=== PATIENT | female | born 1930 | race Caucasian/White ===

== ENCOUNTER → 2017-09-07 | Outpatient (CLI) | payer MEDICARE, MEDICAID | END | disposition home or self-care (01) | LOC: CVU 12:23 | PROVIDERS: ATTEND Physician Assistant | DX: I08.0 Rheumatic disorders of both mitral and aortic valves (principal); I65.23 Occlusion and stenosis of bilateral carotid arteries; E11.9 Type 2 diabetes mellitus without complications; I10 Essential (primary) hypertension; I25.2 Old myocardial infarction; I65.8 Occlusion and stenosis of other precerebral arteries; Z85.3 Personal history of malignant neoplasm of breast; Z86.73 Personal history of transient ischemic attack (TIA), and cerebral infarction without residual deficits; Z87.891 Personal history of nicotine dependence | CPT/HCPCS: 93306; 93880 ==

== ENCOUNTER → 2019-07-11 | Outpatient (CLI) | payer MEDICARE, MEDICAID | END | disposition home or self-care (01) | LOC: CVU 10:53 | PROVIDERS: ATTEND Internal Medicine Cardiovascular Disease | DX: I65.8 Occlusion and stenosis of other precerebral arteries (principal) | CPT/HCPCS: 93880 ==

== ENCOUNTER 2019-12-07 14:07 | Inpatient (IN) | payer MEDICARE, MEDICAID ==
[~2019-12-07] VITALS: Ht 157.5 cm; Wt 74.7 kg
--- NOTE | 2019-12-07 14:30 | NUR ---
SEE TRIAGE. PT ASSISTED UP TO BSC. ALL ROOM MONITORING IN PLACE. PT KEPT ON OXYGEN AT 2LITERS VIA NC. PT DENIES HOME OXYGEN USE. PT ASKED ABOUT LONG LIST OF ALLERGIES AND STATES SHE DOESN'T REMEMBER EACH REACTION. PT SPECIFICALLY ASKED ABOUT IODINE AND SAYS, "I'VE USED IODINE ALL THE TIME ON MY SKIN AND I DON'T GET A REACTION". PT DOES NOT REMEMBER HAVING CT CONTRAST OR IODINE IN IV. ERP NOTIFIED. CALL LIGHT WITHIN REACH.
[2019-12-07 15:18] LABS: INTERNATIONAL NORMALIZED RATIO 1.05 (0.93-1.1); PROTHROMBIN TIME 10.8 Seconds (9.6-11.5)
[2019-12-07] MEDS ORDERED: DUONEB INH (15:30)
[2019-12-07] MEDS ORDERED: TRAZ50TA66 PO (15:30)
[2019-12-07] MEDS ORDERED: ATOR10TA9 PO (15:30)
[2019-12-07] MEDS ORDERED: ROSU5TAB PO (15:30)
[2019-12-07] MEDS ORDERED: NYST15OI TP (15:30)
[2019-12-07] MEDS ORDERED: METF500T17 PO (15:30)
[2019-12-07] MEDS ORDERED: AMLO10TA8 PO (15:30)
[2019-12-07] MEDS ORDERED: VIT E PO (15:30)
[2019-12-07] MEDS ORDERED: ERGO500017 PO (15:30)
[2019-12-07] MEDS ORDERED: LORA10TA62 PO (15:30)
[2019-12-07] MEDS ORDERED: POTA10TA PO (15:30)
[2019-12-07] MEDS ORDERED: NITR1PAT20 TD (15:30)
[2019-12-07] MEDS ORDERED: OMEP40CA42 PO (15:30)
[2019-12-07] MEDS ORDERED: POTA10CA PO (15:30)
[2019-12-07] MEDS ORDERED: MAGN400T9 PO (15:30)
[2019-12-07] MEDS ORDERED: TRIA10PO2 TP (15:30)
[2019-12-07] MEDS ORDERED: MULT-108 PO (15:30)
[2019-12-07] MEDS ORDERED: CLOP75TA52 PO (15:30)
[2019-12-07] MEDS ORDERED: FLUT9.9S NAS (15:30)
[2019-12-07] MEDS ORDERED: [UNRECOGNIZED DRUG - CODE] PO (15:30)
--- NOTE | 2019-12-07 16:13 | NUR ---
[facility] IN TO SEE PT.
--- NOTE | 2019-12-07 17:05 | NUR ---
FRIEND/NEIGHBOR, POINT OF CONTACT CALLED TO INQUIRE ON PT. UNABLE TO GIVE OUT INFORMATION, PT IN CT-UNABLE TO GET CONSENT. TEA VILLAFUERTE [phone]
[2019-12-07] MEDS ORDERED: OMNIPAQUE 350 MG/ML, 100ML BOTTLE ONE (17:08)
--- NOTE | 2019-12-07 17:27 | NUR ---
CTA RESULTS BACK, PT FOR RECHECK.
[2019-12-07] MEDS ORDERED: CEFTRIAXONE PMX 1GM/50ML 50 ML IV SCH (18:00)
[2019-12-07] MEDS ORDERED: ENALAPRILAT 1.25 MG/ML, 2ML IVPush PRN (18:00)
[2019-12-07] MEDS ORDERED: ONDANSETRON ODT 4 MG PO PRN (18:00)
[2019-12-07] MEDS ORDERED: ONDANSETRON 2MG/ML, 2ML IVPush PRN (18:00)
[2019-12-07] MEDS ORDERED: MELATONIN 5 MG TABLET PO PRN (18:00)
[2019-12-07] MEDS ORDERED: DOCUSATE 100 MG CAPSULE PO PRN (18:00)
[2019-12-07] MEDS ORDERED: DEXTROSE 50%, 50ML SYRINGE IVPush PRN (18:00)
[2019-12-07] MEDS ORDERED: ACETAMINOPHEN 325 MG TABLET PO PRN (18:00)
[2019-12-07] MEDS ORDERED: GLUCAGON 1 MG IM PRN (18:00)
[2019-12-07] MEDS ORDERED: GUAIFENESIN/COD200MG-20MG/10ML LIQUID PO PRN (18:00)
[2019-12-07] MEDS ORDERED: AZITHROMYCIN 500 MG in SODIUM CHLORIDE 0.9% 250 ML IV SCH (18:00)
[2019-12-07] MEDS ORDERED: DEXTROSE 4 GM TAB.CHEW PO PRN (18:00)
--- NOTE | 2019-12-07 18:19 | NUR ---
REPORT TO VALERIE, WORKING WITH TINO. PT READY FOR TRANSPORT TO FLOOR.
--- NOTE | 2019-12-07 18:20 | NUR ---
[employer]OL OFFICER WAS PAGED @[phone]
--- NOTE | 2019-12-07 18:22 | NUR ---
BRA[employer] PRESS PULLER CALLED BACK @[phone].
[2019-12-07] MEDS ORDERED: POTASSIUM CHLORIDE 20 MEQ in SODIUM CHLORIDE 0.9% 250 ML IV ONE (18:30)
--- NOTE | 2019-12-07 18:58 | NUR ---
BEDSIDE REPORT FROM JUSTIN AG. PT SITTING IN BED, NO SIGNS OF ACUTE DISTRESS, CONNECTED TO CARDIAC, BP AND O2 MONITORS. CALL LIGHT IN REACH, BEDRAILS UP X2.
--- NOTE | 2019-12-07 18:59 | NUR ---
REPORT TO PHIL, TRANSFER OF CARE AT THIS TIME.
[2019-12-07] MEDS ORDERED: TICAGRELOR 90 MG TABLET PO ONE (19:00)
[2019-12-07] MEDS ORDERED: FUROSEMIDE 20 MG/2 ML IV ONE (19:45)
[2019-12-07 20:01] VITALS: BP 113/63
[2019-12-07] MEDS: [UNRECOGNIZED DRUG - REMARK] MC SCH (21:00)
[2019-12-07] MEDS: INSULIN LISPRO 100 UNITS/ML, PEN SQ-INSULIN SCH (21:33)
[2019-12-07] MEDS: SODIUM CHLORIDE FLUSH 10ML SYR IVF SCH (21:42)
[2019-12-07] MEDS: ERTAPENEM 1 GM in SODIUM CHLORIDE 0.9% 50 ML IV SCH (22:32)
[2019-12-08] MEDS: ENOXAPARIN 80 MG/0.8 ML SQ SCH ×2 (00:25→11:48)
[2019-12-08 00:33] VITALS: BP 133/82
[2019-12-08] MEDS: [UNRECOGNIZED DRUG - REMARK] MC SCH (04:30)
[2019-12-08 05:37] LABS: BASOPHILS # (AUTO) 0.04 x10^3/uL (0-0.1); BASOPHILS % (AUTO) 1 % (0-1); EOSINOPHILS # (AUTO) 0.06 x10^3/uL (0-0.4); EOSINOPHILS % (AUTO) 1 % (1-7); LYMPHOCYTES # (AUTO) 1.78 x10^3/uL (1-3.4); LYMPHOCYTES % (AUTO) 23 % (22-44); MD NO; MEAN CORPUSCULAR HEMOGLOBIN 25.3 pg (27.0-34.8); MEAN CORPUSCULAR HGB CONC 30.8 g/dL (32.4-35.8); MEAN CORPUSCULAR VOLUME 82.1 fL (80-100); MEAN PLATELET VOLUME 8.3 fL (7.4-10.4); MONOCYTES # (AUTO) 1.03 x10^3/uL (0.2-0.8); MONOCYTES % (AUTO) 14 % (2-9); NEUTROPHILS % (AUTO) 62 % (42-75); PLATELET COUNT 262 x10^3/uL (130-400); RED CELL DISTRIBUTION WIDTH 18.6 % (9.6-15.2)
[2019-12-08 05:52] LABS: ANION GAP 7 mmol/L (5-15); CALCIUM 7.1 mg/dL (8.5-10.1); CHLORIDE 102 mmol/L (98-107)
[2019-12-08 05:53] LABS: CREATININE 0.93 mg/dL (0.55-1.02)
[2019-12-08] MEDS ORDERED: ASPIRIN 325 MG TABLET EC PO SCH (06:00)
[2019-12-08 06:46] VITALS: BP 150/87
[2019-12-08] MEDS: INSULIN LISPRO 100 UNITS/ML, PEN SQ-INSULIN SCH ×4 (07:00→21:00)
[2019-12-08] MEDS: SODIUM CHLORIDE FLUSH 10ML SYR IVF SCH ×2 (08:45→20:24)
--- NOTE | 2019-12-08 09:08 | NUR ---
d/c REC: Home GROUND DIET WITH THIN LIQUIDS PER PT REQUEST DUE TO ILL FITTING DENTURES Addendum: 12/08/19 at 0909 by Karlie FLOREZ Amended: Links added.
[2019-12-08] MEDS: CLOPIDOGREL 75 MG TABLET PO SCH (09:58)
[2019-12-08] MEDS: ASPIRIN 81 MG TABLET EC PO SCH (09:58)
[2019-12-08] MEDS ORDERED: METOPROLOL TARTRATE 25 MG TAB PO SCH (10:00)
[2019-12-08] MEDS ORDERED: POTASSIUM CHLORIDE 20 MEQ TAB.ER.PRT PO ONE (10:30)
[2019-12-08 12:20] VITALS: BP 146/69
[2019-12-08] MEDS: CARVEDILOL 3.125 MG TABLET PO SCH (17:27)
[2019-12-08] MEDS: POTASSIUM CHLORIDE 20 MEQ PACKET PO SCH ×2 (17:27→17:28)
[2019-12-08] MEDS: FUROSEMIDE 20 MG/2 ML IV SCH (17:27)
[2019-12-08 18:49] VITALS: BP 139/84
[2019-12-08] MEDS: ATORVASTATIN 40 MG TABLET PO SCH (20:24)
[2019-12-08] MEDS: ERTAPENEM 1 GM in SODIUM CHLORIDE 0.9% 50 ML IV SCH (21:50)
[2019-12-09] MEDS: ENOXAPARIN 80 MG/0.8 ML SQ SCH ×2 (00:17→12:17)
[2019-12-09 02:00] VITALS: BP 130/80
[2019-12-09] MEDS: ASPIRIN 81 MG TABLET EC PO SCH (05:27)
[2019-12-09] MEDS: CARVEDILOL 3.125 MG TABLET PO SCH ×3 (05:27→17:42)
[2019-12-09 05:54] LABS: CHLORIDE 101 mmol/L (98-107)
[2019-12-09 05:58] LABS: BASOPHILS # (AUTO) 0.01 x10^3/uL (0-0.1); BASOPHILS % (AUTO) 0 % (0-1); EOSINOPHILS # (AUTO) 0.06 x10^3/uL (0-0.4); EOSINOPHILS % (AUTO) 1 % (1-7); LYMPHOCYTES # (AUTO) 2.24 x10^3/uL (1-3.4); LYMPHOCYTES % (AUTO) 43 % (22-44); MD NO; MEAN CORPUSCULAR HEMOGLOBIN 25.5 pg (27.0-34.8); MEAN CORPUSCULAR HGB CONC 31.4 g/dL (32.4-35.8); MEAN CORPUSCULAR VOLUME 81.2 fL (80-100); MEAN PLATELET VOLUME 8.3 fL (7.4-10.4); MONOCYTES # (AUTO) 0.79 x10^3/uL (0.2-0.8); MONOCYTES % (AUTO) 15 % (2-9); NEUTROPHILS # (AUTO) 2.07 x10^3/uL (1.8-6.8); NEUTROPHILS % (AUTO) 40 % (42-75); PLATELET COUNT 242 x10^3/uL (130-400); RED BLOOD COUNT 3.56 x10^6/uL (3.82-5.3); RED CELL DISTRIBUTION WIDTH 19.1 % (9.6-15.2)
[2019-12-09 05:59] LABS: ANION GAP 5 mmol/L (5-15); CALCIUM 7.4 mg/dL (8.5-10.1); CREATININE 0.88 mg/dL (0.55-1.02)
[2019-12-09] MEDS: INSULIN LISPRO 100 UNITS/ML, PEN SQ-INSULIN SCH ×4 (07:00→20:11)
[2019-12-09 08:06] VITALS: BP 144/68
[2019-12-09] MEDS: SODIUM CHLORIDE FLUSH 10ML SYR IVF SCH ×2 (09:00→20:11)
[2019-12-09] MEDS ORDERED: MAGNESIUM SULFATE PMX 4GM/100M 100 ML IV ONE (09:00)
[2019-12-09] MEDS ORDERED: POTASSIUM PHOSPHATE 44 MEQ in SODIUM CHLORIDE 0.9% 500 ML IV ONE (09:00)
[2019-12-09] MEDS: POTASSIUM CHLORIDE 20 MEQ PACKET PO SCH ×3 (09:52→17:29)
[2019-12-09] MEDS: CLOPIDOGREL 75 MG TABLET PO SCH (09:52)
[2019-12-09] MEDS: LOSARTAN 25MG TABLET PO SCH (09:52)
[2019-12-09] MEDS: MAGNESIUM CHLORIDE 64 MG TABLET.DR PO SCH ×2 (09:52→20:10)
[2019-12-09] MEDS: FUROSEMIDE 20 MG/2 ML IV SCH ×2 (09:52→17:29)
[2019-12-09] MEDS: HYPERTONIC SALINE LEFTEYE SCH ×3 (11:30→20:11)
[2019-12-09 12:12] VITALS: BP 142/86
[2019-12-09 17:30] VITALS: BP 95/61
[2019-12-09] MEDS ORDERED: SODIUM CHLORIDE 0.9%, 500ML IVBOLUS ONE (18:00)
[2019-12-09 18:46] VITALS: BP 111/72
[2019-12-09] MEDS: ATORVASTATIN 40 MG TABLET PO SCH (20:10)
[2019-12-09] MEDS: ERTAPENEM 1 GM in SODIUM CHLORIDE 0.9% 50 ML IV SCH (21:49)
[2019-12-10 00:01] VITALS: BP 130/70
[2019-12-10] MEDS: ENOXAPARIN 80 MG/0.8 ML SQ SCH (00:43)
[2019-12-10] MEDS: HYPERTONIC SALINE LEFTEYE SCH ×4 (05:43→20:53)
[2019-12-10] MEDS: CARVEDILOL 3.125 MG TABLET PO SCH ×2 (05:43→17:28)
[2019-12-10] MEDS: ASPIRIN 81 MG TABLET EC PO SCH (05:43)
[2019-12-10 06:12] LABS: ANION GAP 4 mmol/L (5-15); CALCIUM 7.4 mg/dL (8.5-10.1); CHLORIDE 103 mmol/L (98-107)
[2019-12-10 06:14] LABS: CREATININE 0.85 mg/dL (0.55-1.02)
[2019-12-10] MEDS: INSULIN LISPRO 100 UNITS/ML, PEN SQ-INSULIN SCH ×4 (07:00→20:53)
[2019-12-10 07:39] VITALS: BP 119/77
[2019-12-10] MEDS: MAGNESIUM CHLORIDE 64 MG TABLET.DR PO SCH ×2 (08:39→20:53)
[2019-12-10] MEDS: POTASSIUM CHLORIDE 20 MEQ PACKET PO SCH ×3 (08:39→17:27)
[2019-12-10] MEDS: LOSARTAN 25MG TABLET PO SCH (08:40)
[2019-12-10] MEDS: SODIUM CHLORIDE FLUSH 10ML SYR IVF SCH ×2 (08:40→20:52)
[2019-12-10] MEDS: CLOPIDOGREL 75 MG TABLET PO SCH (08:40)
[2019-12-10] MEDS: FUROSEMIDE 20 MG/2 ML IV SCH ×2 (08:40→17:27)
[2019-12-10] MEDS ORDERED: ENOXAPARIN 60 MG/0.6 ML SQ SCH (12:30)
[2019-12-10 13:12] VITALS: BP 111/73
[2019-12-10 17:09] VITALS: BP 125/76
[2019-12-10 20:49] VITALS: BP 111/73
[2019-12-10] MEDS: ATORVASTATIN 40 MG TABLET PO SCH (20:53)
[2019-12-10] MEDS: ERTAPENEM 1 GM in SODIUM CHLORIDE 0.9% 50 ML IV SCH (21:58)
[2019-12-11 01:07] VITALS: BP 130/81
[2019-12-11 04:33] LABS: ANION GAP 5 mmol/L (5-15); CALCIUM 7.3 mg/dL (8.5-10.1); CHLORIDE 102 mmol/L (98-107); CREATININE 1.22 mg/dL (0.55-1.02)
[2019-12-11 05:30] VITALS: BP 99/63
[2019-12-11] MEDS: ASPIRIN 81 MG TABLET EC PO SCH (05:32)
[2019-12-11] MEDS: CARVEDILOL 3.125 MG TABLET PO SCH ×2 (05:32→18:00)
[2019-12-11] MEDS: HYPERTONIC SALINE LEFTEYE SCH ×4 (05:32→21:27)
[2019-12-11] MEDS: INSULIN LISPRO 100 UNITS/ML, PEN SQ-INSULIN SCH ×4 (07:00→21:21)
[2019-12-11 07:33] VITALS: BP 129/80
[2019-12-11] MEDS ORDERED: ENOXAPARIN 30 MG/0.3 ML SQ SCH (09:00)
[2019-12-11] MEDS ORDERED: ENOXAPARIN 40 MG/0.4 ML SQ SCH (09:00)
[2019-12-11 09:06] LABS: % IRON SATURATION 7 % (20-55); IRON LEVEL 25 mcg/dL (50-170); TOTAL IRON BINDING CAPACITY 335 mcg/dL (250-450)
[2019-12-11 09:11] LABS: OCCULT BLOOD POSITIVE (NEGATIVE)
[2019-12-11] MEDS: MAGNESIUM CHLORIDE 64 MG TABLET.DR PO SCH ×2 (09:49→21:27)
[2019-12-11] MEDS: CLOPIDOGREL 75 MG TABLET PO SCH (09:49)
[2019-12-11] MEDS: ALBUMIN HUMAN 25% 50 ML IV SCH ×2 (09:55→18:35)
[2019-12-11] MEDS: SODIUM CHLORIDE FLUSH 10ML SYR IVF SCH ×2 (09:56→21:27)
[2019-12-11 10:27] LABS: CLOSTRIDIUM DIFFICILE ANTIGEN NEGATIVE; CLOSTRIDIUM DIFFICILE TOXIN NEGATIVE (Negative)
[2019-12-11 12:59] VITALS: BP 118/73
[2019-12-11 18:28] VITALS: BP 85/54
[2019-12-11 19:07] VITALS: BP 110/72
[2019-12-11] MEDS: ERTAPENEM 1 GM in SODIUM CHLORIDE 0.9% 50 ML IV SCH (21:26)
[2019-12-11] MEDS: ATORVASTATIN 40 MG TABLET PO SCH (21:27)
[2019-12-12 01:15] VITALS: BP 132/88
[2019-12-12 05:23] LABS: ANION GAP 5 mmol/L (5-15); BASOPHILS # (AUTO) 0.03 x10^3/uL (0-0.1); BASOPHILS % (AUTO) 1 % (0-1); CALCIUM 7.8 mg/dL (8.5-10.1); CHLORIDE 105 mmol/L (98-107); EOSINOPHILS # (AUTO) 0.13 x10^3/uL (0-0.4); EOSINOPHILS % (AUTO) 3 % (1-7); LYMPHOCYTES % (AUTO) 39 % (22-44); MD NO; MEAN CORPUSCULAR HGB CONC 31.2 g/dL (32.4-35.8); MEAN CORPUSCULAR VOLUME 83.2 fL (80-100); MEAN PLATELET VOLUME 7.9 fL (7.4-10.4); MONOCYTES # (AUTO) 0.85 x10^3/uL (0.2-0.8); MONOCYTES % (AUTO) 16 % (2-9); NEUTROPHILS # (AUTO) 2.22 x10^3/uL (1.8-6.8); NEUTROPHILS % (AUTO) 42 % (42-75); PLATELET COUNT 246 x10^3/uL (130-400); RED BLOOD COUNT 3.09 x10^6/uL (3.82-5.3); RED CELL DISTRIBUTION WIDTH 19.2 % (9.6-15.2)
[2019-12-12 05:29] LABS: CREATININE 0.99 mg/dL (0.55-1.02)
[2019-12-12] MEDS: CARVEDILOL 3.125 MG TABLET PO SCH ×2 (05:33→18:04)
[2019-12-12] MEDS: ASPIRIN 81 MG TABLET EC PO SCH (05:33)
[2019-12-12] MEDS: HYPERTONIC SALINE LEFTEYE SCH ×4 (05:34→21:37)
[2019-12-12] MEDS: INSULIN LISPRO 100 UNITS/ML, PEN SQ-INSULIN SCH ×4 (07:00→21:35)
[2019-12-12 07:33] VITALS: BP 87/52
[2019-12-12] MEDS ORDERED: ACETAMINOPHEN 325 MG TABLET PO SCH (08:00)
[2019-12-12] MEDS ORDERED: FUROSEMIDE 20 MG/2 ML IV ONE (08:00)
[2019-12-12] MEDS ORDERED: DIPHENHYDRAMINE 12.5MG/5ML, 10ML UDC PO SCH (08:00)
[2019-12-12] MEDS: SODIUM CHLORIDE FLUSH 10ML SYR IVF SCH ×2 (09:00→21:35)
[2019-12-12] MEDS: ENOXAPARIN 40 MG/0.4 ML SQ SCH (09:00)
[2019-12-12] MEDS: MAGNESIUM CHLORIDE 64 MG TABLET.DR PO SCH ×2 (09:27→22:25)
[2019-12-12] MEDS: CLOPIDOGREL 75 MG TABLET PO SCH (09:27)
[2019-12-12 12:40] VITALS: BP 93/61
[2019-12-12 17:58] VITALS: BP 106/60
[2019-12-12 18:39] VITALS: BP 129/80
[2019-12-12] MEDS: ATORVASTATIN 40 MG TABLET PO SCH (21:37)
[2019-12-12] MEDS: ERTAPENEM 1 GM in SODIUM CHLORIDE 0.9% 50 ML IV SCH (21:37)
[2019-12-13] VITALS (10 sets, daily range): BP systolic 105–147; BP diastolic 58–90
[2019-12-13 05:24] LABS: BASOPHILS % (AUTO) 1 % (0-1); MD NO
[2019-12-13 05:42] LABS: CHLORIDE 108 mmol/L (98-107)
[2019-12-13] MEDS: CARVEDILOL 3.125 MG TABLET PO SCH ×2 (05:44→21:35)
[2019-12-13] MEDS: ASPIRIN 81 MG TABLET EC PO SCH (05:44)
[2019-12-13] MEDS: HYPERTONIC SALINE LEFTEYE SCH ×4 (05:45→20:31)
[2019-12-13 05:52] LABS: BASOPHILS # (AUTO) 0.03 x10^3/uL (0-0.1); EOSINOPHILS # (AUTO) 0.09 x10^3/uL (0-0.4); EOSINOPHILS % (AUTO) 2 % (1-7); LYMPHOCYTES # (AUTO) 2.24 x10^3/uL (1-3.4); LYMPHOCYTES % (AUTO) 43 % (22-44); MEAN CORPUSCULAR HGB CONC 31.1 g/dL (32.4-35.8); MEAN CORPUSCULAR VOLUME 83.6 fL (80-100); MEAN PLATELET VOLUME 8.1 fL (7.4-10.4); MONOCYTES # (AUTO) 0.68 x10^3/uL (0.2-0.8); MONOCYTES % (AUTO) 13 % (2-9); NEUTROPHILS # (AUTO) 2.12 x10^3/uL (1.8-6.8); NEUTROPHILS % (AUTO) 41 % (42-75); PLATELET COUNT 230 x10^3/uL (130-400); RED BLOOD COUNT 3.08 x10^6/uL (3.82-5.3)
[2019-12-13 05:57] LABS: ANION GAP 5 mmol/L (5-15); CALCIUM 7.8 mg/dL (8.5-10.1); CREATININE 0.98 mg/dL (0.55-1.02)
[2019-12-13] MEDS: INSULIN LISPRO 100 UNITS/ML, PEN SQ-INSULIN SCH ×4 (07:00→20:28)
[2019-12-13] MEDS: CLOPIDOGREL 75 MG TABLET PO SCH (09:52)
[2019-12-13] MEDS: MAGNESIUM CHLORIDE 64 MG TABLET.DR PO SCH ×2 (09:52→20:30)
[2019-12-13] MEDS: ENOXAPARIN 40 MG/0.4 ML SQ SCH (09:52)
[2019-12-13] MEDS: SODIUM CHLORIDE FLUSH 10ML SYR IVF SCH ×2 (09:53→20:31)
[2019-12-13] MEDS ORDERED: INSU100I11 SQ-INSULIN (11:36)
[2019-12-13] MEDS ORDERED: HYPERTONIC SALINE LEFTEYE (11:36)
[2019-12-13] MEDS ORDERED: MELA5TAB14 PO (11:36)
[2019-12-13] MEDS ORDERED: DOCU100C33 PO (11:36)
[2019-12-13] MEDS ORDERED: CARV3.1212 PO (11:36)
[2019-12-13] MEDS ORDERED: ATOR40TA78 PO (11:36)
[2019-12-13] MEDS ORDERED: MAGN70TA2 PO (11:36)
[2019-12-13] MEDS ORDERED: ACET325T26 PO (11:36)
[2019-12-13] MEDS ORDERED: DIPHENHYDRAMINE 12.5MG/5ML, 10ML UDC PO ONE (17:30)
[2019-12-13 17:40] LABS: OCCULT BLOOD POSITIVE (NEGATIVE)
[2019-12-13] MEDS ORDERED: FUROSEMIDE 20 MG/2 ML IV ONE (20:00)
[2019-12-13] MEDS: ATORVASTATIN 40 MG TABLET PO SCH (20:30)
[2019-12-13] MEDS: ERTAPENEM 1 GM in SODIUM CHLORIDE 0.9% 50 ML IV SCH (21:40)
[2019-12-14 01:23] VITALS: BP 115/73
[2019-12-14] MEDS: HYPERTONIC SALINE LEFTEYE SCH ×4 (06:00→20:47)
[2019-12-14 06:12] LABS: MEAN CORPUSCULAR HGB CONC 31.1 g/dL (32.4-35.8); MEAN CORPUSCULAR VOLUME 83.6 fL (80-100); PLATELET COUNT 236 x10^3/uL (130-400); RED BLOOD COUNT 3.51 x10^6/uL (3.82-5.3); RED CELL DISTRIBUTION WIDTH 19.2 % (9.6-15.2)
[2019-12-14] MEDS: CARVEDILOL 3.125 MG TABLET PO SCH ×2 (06:19→17:33)
[2019-12-14] MEDS: ASPIRIN 81 MG TABLET EC PO SCH (06:19)
[2019-12-14 06:38] LABS: BASOPHILS # (AUTO) 0.05 x10^3/uL (0-0.1); BASOPHILS % (AUTO) 1 % (0-1); EOSINOPHILS # (AUTO) 0.08 x10^3/uL (0-0.4); EOSINOPHILS % (AUTO) 2 % (1-7); LYMPHOCYTES # (AUTO) 1.84 x10^3/uL (1-3.4); LYMPHOCYTES % (AUTO) 37 % (22-44); MD SCAN; MONOCYTES # (AUTO) 0.81 x10^3/uL (0.2-0.8); MONOCYTES % (AUTO) 16 % (2-9); NEUTROPHILS # (AUTO) 2.19 x10^3/uL (1.8-6.8); NEUTROPHILS % (AUTO) 44 % (42-75)
[2019-12-14] MEDS: INSULIN LISPRO 100 UNITS/ML, PEN SQ-INSULIN SCH ×4 (07:00→21:00)
[2019-12-14] MEDS: MAGNESIUM CHLORIDE 64 MG TABLET.DR PO SCH ×2 (08:16→20:47)
[2019-12-14 08:42] VITALS: BP 121/64
[2019-12-14] MEDS: SODIUM CHLORIDE FLUSH 10ML SYR IVF SCH ×2 (09:00→20:47)
[2019-12-14 09:18] LABS: ANION GAP 4 mmol/L (5-15); CHLORIDE 108 mmol/L (98-107); CREATININE 0.95 mg/dL (0.55-1.02)
[2019-12-14 12:20] VITALS: BP 121/67
[2019-12-14 17:31] VITALS: BP 138/84
[2019-12-14 19:04] VITALS: BP 96/59
[2019-12-14] MEDS: ATORVASTATIN 40 MG TABLET PO SCH (20:47)
[2019-12-14] MEDS: ERTAPENEM 1 GM in SODIUM CHLORIDE 0.9% 50 ML IV SCH (21:39)
[2019-12-15 00:14] VITALS: BP 115/76
[2019-12-15] MEDS: ASPIRIN 81 MG TABLET EC PO SCH (04:56)
[2019-12-15] MEDS: HYPERTONIC SALINE LEFTEYE SCH ×2 (04:56→11:00)
[2019-12-15] MEDS: CARVEDILOL 3.125 MG TABLET PO SCH (04:56)
[2019-12-15 06:01] LABS: BASOPHILS # (AUTO) 0.03 x10^3/uL (0-0.1); BASOPHILS % (AUTO) 1 % (0-1); EOSINOPHILS # (AUTO) 0.06 x10^3/uL (0-0.4); EOSINOPHILS % (AUTO) 1 % (1-7); LYMPHOCYTES # (AUTO) 1.74 x10^3/uL (1-3.4); LYMPHOCYTES % (AUTO) 40 % (22-44); MD NO; MEAN CORPUSCULAR HEMOGLOBIN 26.1 pg (27.0-34.8); MEAN CORPUSCULAR VOLUME 84.1 fL (80-100); MEAN PLATELET VOLUME 8.1 fL (7.4-10.4); MONOCYTES # (AUTO) 0.71 x10^3/uL (0.2-0.8); MONOCYTES % (AUTO) 17 % (2-9); NEUTROPHILS # (AUTO) 1.77 x10^3/uL (1.8-6.8); NEUTROPHILS % (AUTO) 41 % (42-75); PLATELET COUNT 230 x10^3/uL (130-400); RED BLOOD COUNT 3.49 x10^6/uL (3.82-5.3)
[2019-12-15 06:07] LABS: ANION GAP 4 mmol/L (5-15); CALCIUM 8.2 mg/dL (8.5-10.1); CHLORIDE 109 mmol/L (98-107)
[2019-12-15 06:08] LABS: CREATININE 0.83 mg/dL (0.55-1.02)
[2019-12-15] MEDS: INSULIN LISPRO 100 UNITS/ML, PEN SQ-INSULIN SCH ×2 (07:00→11:00)
[2019-12-15 07:08] VITALS: BP 108/68
[2019-12-15] MEDS: MAGNESIUM CHLORIDE 64 MG TABLET.DR PO SCH (08:50)
[2019-12-15] MEDS: SODIUM CHLORIDE FLUSH 10ML SYR IVF SCH (08:51)
[2019-12-15] MEDS ORDERED: ASPI81TA45 PO (11:23)
[2019-12-15 12:30] VITALS: BP 121/77
== END 2019-12-15 17:23 | DRG 177 ==
LOC: ED 15:15 → EDIP 15:48 → 4EST 19:27 → 5SO 12-10 17:28 → 4EST 12-10 17:30 → 5SO 12-10 18:18
PROVIDERS: ADMIT Internal Medicine; ATTEND Internal Medicine
PROC: 30233N1 Transfusion of Nonautologous Red Blood Cells into Peripheral Vein, Percutaneous Approach (ICD-10-PCS; principal; 2019-12-13)
DX: J15.6 Pneumonia due to other Gram-negative bacteria (principal); I21.A1 Myocardial infarction type 2; I50.23 Acute on chronic systolic (congestive) heart failure; J96.01 Acute respiratory failure with hypoxia; N17.0 Acute kidney failure with tubular necrosis; D62 Acute posthemorrhagic anemia; J44.0 Chronic obstructive pulmonary disease with (acute) lower respiratory infection; I11.0 Hypertensive heart disease with heart failure; Z20.828 Contact with and (suspected) exposure to other viral communicable diseases; R04.0 Epistaxis; E78.5 Hyperlipidemia, unspecified; E11.51 Type 2 diabetes mellitus with diabetic peripheral angiopathy without gangrene; I25.10 Atherosclerotic heart disease of native coronary artery without angina pectoris; I48.91 Unspecified atrial fibrillation; F17.210 Nicotine dependence, cigarettes, uncomplicated; M79.7 Fibromyalgia; J44.9 Chronic obstructive pulmonary disease, unspecified; Z88.0 Allergy status to penicillin; Z88.2 Allergy status to sulfonamides; Z88.8 Allergy status to other drugs, medicaments and biological substances; Z98.1 Arthrodesis status; Z90.12 Acquired absence of left breast and nipple; Z88.6 Allergy status to analgesic agent; Z88.1 Allergy status to other antibiotic agents; Z86.73 Personal history of transient ischemic attack (TIA), and cerebral infarction without residual deficits; Z90.710 Acquired absence of both cervix and uterus; Z79.899 Other long term (current) drug therapy; Z79.4 Long term (current) use of insulin; I25.2 Old myocardial infarction; Z85.3 Personal history of malignant neoplasm of breast
CPT/HCPCS: 36415; 70450; 71275; 80048; 82272; 82728; 82962; 83036; 83540; 83550; 83605; 83735; 84100; 84145; 84484; 85025; 85610; 85730; 86850; 86900; 86923; 87040; 87324; 87635; 93005; 93306; G0378; J1335; J1650; J3480; P9047; Q9967; J1815; J1940; J3475; J7040; J7050; P9016